=== PATIENT | female | born 1990 | race Caucasian/White ===

== ENCOUNTER 2019-06-02 20:30 | Emergency (ER) | payer OTHER ==
[~2019-06-02] VITALS: Ht 172.7 cm; Wt 90.7 kg
[2019-06-02 23:00] VITALS: BP 124/79
== END 2019-06-02 23:18 | disposition home or self-care (01) ==
LOC: ER 20:33
DX: M54.6 Pain in thoracic spine (principal); M54.2 Cervicalgia; Z88.0 Allergy status to penicillin; V49.9XXA Car occupant (driver) (passenger) injured in unspecified traffic accident, initial encounter; Y93.89 Activity, other specified; Y92.89 Other specified places as the place of occurrence of the external cause; Y99.8 Other external cause status
CPT/HCPCS: 72100; 72125